=== PATIENT | female | born 1950 | race Caucasian/White ===

== ENCOUNTER 2017-03-13 10:01 | Emergency (ER) | payer MEDICARE, BC ==
--- NOTE | ~2017-03-13 | CT4 ---
[facility] A Service of [facility] & [facility] RADIOLOGY TEXT RESULTS PATIENT: DIANA CURRIE LOCATION: SED : 49 UNIT #: [id number] AGE: [address]: Foreign Cordero MD SEX: F ORDER DR: [id number] [address] [address] [id number] MR#: [id number] Acc #: [id number] NAME: DIANA CURRIE : 1950 SEX: F STUDY DATE/TIME: 03/13/2017 UNIT: SED ROOM: STUDY DESCRIPTION: CT Abd and Pelv Wo Cont Attending Physician: Foreign Cordero M.D. Ordering Physician: Foreign Cordero M.D. Primary Care Physician: Ml Victor M.D. MEDICAL IMAGING REPORT This report is preliminary unless electronic signature is present. EXAM CT abdomen and pelvis without contrast 03/13/2017 1256 hours HISTORY 66-year-old woman with complaint of lower abdominal pain and back pain with dysuria for [address] pelvis 01/22/2006 TECHNIQUE Helical noncontrasted images were obtained from the lung bases through the pubic symphysis. Oral contrast only was administered. Sagittal and coronal reconstructions were performed. This CT exam was performed with one or more of the following radiation dose reduction techniques: automatic exposure control, adjustment of mA and/or kV according to patient size, and iterative reconstruction. FINDINGS Images through the lung bases demonstrate calcified granulomata at the right base. There is no acute pulmonary density or pleural effusion. The distal esophagus is normal. Noncontrasted images through the abdomen demonstrate a normal appearance to the liver, spleen, pancreas and bile ducts. There are clips consistent with prior cholecystectomy. There is mild dilatation of the common bile duct felt likely within normal range for a postcholecystectomy patient. The right kidney is surgically absent. 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 There is a low-density lesion in the upper pole left kidney, likely a cyst. The abdominal aorta is normal in caliber. There is no adenopathy or ascites. [facility] A Service of [facility] & [facility] RADIOLOGY TEXT RESULTS PATIENT: DIANA CURRIE LOCATION: SED : 49 UNIT #: [id number] AGE: [address]: Foreign Cordero MD SEX: F ORDER DR: There is a midline ventral hernia just inferior to the xiphoid containing only fat. Transverse defect is 2.9 cm. The stomach and small bowel are well opacified and normal in appearance. The colon is opacified, and the cecum, ascending colon, transverse colon and descending colon to the level of the mid sigmoid colon, where there is focal wall thickening of the sigmoid colon and stranding of the adjacent fat. Colonic diverticula are present. The findings most likely represent acute diverticulitis. However, a colon carcinoma could appear similarly. Suggest treatment for diverticulitis with follow up colonoscopy post-treatment to exclude an underlying lesion. The left ovary lies just inferior to this area of inflammation and is smaller than on CT 2006. The uterus is surgically absent. The bladder appears normal. IMPRESSION 1. Right nephrectomy change with no stone or obstruction on the left. 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 There are a few small cysts in the left kidney. 2. The patient has an abnormal segment of the mid sigmoid colon where there is wall thickening and multiple diverticula. There is stranding of the adjacent fat. The appearance favors acute diverticulitis without abscess or perforation. A colon carcinoma could appear similarly. Suggest treatment for acute diverticulitis with follow up colonoscopy post-treatment to exclude an underlying malignancy. 3. No acute findings at the lung bases. STAT * RESULT Dictated by... Jennifer Alvarez M.D. THIS IS AN ELECTRONICALLY VERIFIED REPORT Jennifer Alvarez M.D. at 03/13/2017 4:01 PM Jeramy TD: 03/13/2017 13:59 JOB #: [id number] MEDICAL IMAGING REPORT Page 1 of 1
[2017-03-13] MEDS ORDERED: SYNTHROID125 PO (10:27)
[2017-03-13] MEDS ORDERED: ZOCOR20 MG PO (10:27)
[2017-03-13] MEDS ORDERED: PRINIVIL40 MG PO (10:27)
[2017-03-13] MEDS ORDERED: FISH OIL300 MG PO (10:28)
[2017-03-13] MEDS ORDERED: HYDROCHLOROTHIA25 MG PO (10:28)
[2017-03-13] MEDS ORDERED: PEPCID AC20 M2 PO (10:28)
[2017-03-13] MEDS ORDERED: ATIVAN0.5 MG PO (10:37)
[2017-03-13 10:39] LABS: URINE SOURCE CLEAN CATCH
[2017-03-13 10:45] LABS: URINE APPEARANCE CLEAR; URINE BILIRUBIN NEG (NEG); URINE BLOOD TRACE-INTACT (NEG); URINE COLOR YELLOW; URINE GLUCOSE NEG (NORM); URINE KETONE NEG (NEG); URINE LEUKOCYTE ESTERASE NEG (NEG); URINE NITRATE NEG (NEG); URINE PROTEIN NEG (NEG); URINE SPECIFIC GRAVITY <=1.005 (1.003-1.035); URINE UROBILINOGEN 0.2 MG/DL (NORM)
[2017-03-13 10:48] LABS: MICRO INDICATED? YES
[2017-03-13 10:51] LABS: CULTURE INDICATED? NO; URINE BACTERIA NEG (NEG); URINE RBC 0-2 /[HPF] (0-2); URINE SQUAMOUS EPITHELIAL CELL OCCAS /[HPF]; URINE WBC 0-2 /[HPF] (0-5)
[2017-03-13 11:19] LABS: BASOPHIL# 0.1 X10e3 (0-0.3); BASOPHIL% 0.8 % (0-2.5); EOSINOPHIL# 0.1 X10e3 (0-0.7); EOSINOPHIL% 1.1 % (0.0-7.0); HEMATOCRIT 41.6 % (35.0-45.0); HEMOGLOBIN 14.3 gm/dL (12.0-16.0); LYMPHOCYTE# 1.2 X10e3 (1.0-3.5); LYMPHOCYTE% 15.5 % (17.0-45.0); MEAN CELL VOLUME 82.4 FL (83-96); MEAN CORPUSCULAR HEMOGLOBIN 28.4 PG (28-34); MEAN CORPUSCULAR HGB CONC 34.5 g/dL (30-36); MEAN PLATELET VOLUME 8.2 FL (6.5-11.5); MONOCYTE# 0.6 X10e3 (0-1.0); MONOCYTE% 8.4 % (3.0-12.0); NEUTROPHIL# 5.6 X10e3 (1.5-7.1); NEUTROPHIL% 74.2 % (40-75); PLATELET COUNT 117 X10e3 (140-420); RED BLOOD COUNT 5.05 X10e (3.90-5.30); RED CELL DISTRIBUTION WIDTH 14.2 % (11.0-15.5); WHITE BLOOD COUNT 7.6 X10e3 (4.0-10.5)
[2017-03-13 11:23] LABS: DIFF IND NO
[2017-03-13 11:39] LABS: ALBUMIN SERUM 4.2 g/dL (3.5-5.0); BILIRUBIN, DIRECT 0.1 mg/dL (0.0-0.2); BILIRUBIN,TOTAL 1.1 mg/dL (0.2-2.0); BUN/CREATININE RATIO 21.66; CALCIUM SERUM 9.3 mg/dL (8.4-10.2); CREATININE SERUM 1.2 mg/dL (0.6-1.4); GLOM FILT RATE Estimated 46.7 mL/min (>60); POTASSIUM 4.1 mmol/L (3.5-5.1); PROTEIN TOTAL SERUM 7.9 g/dL (6.0-8.3)
== END 2017-03-13 14:22 | disposition home or self-care (01) ==
LOC: SED 10:01
PROVIDERS: Emergency Medicine
DX: K57.32 Diverticulitis of large intestine without perforation or abscess without bleeding (principal); K21.9 Gastro-esophageal reflux disease without esophagitis; J44.9 Chronic obstructive pulmonary disease, unspecified; I10 Essential (primary) hypertension; E78.5 Hyperlipidemia, unspecified; E03.9 Hypothyroidism, unspecified; Z88.0 Allergy status to penicillin; Z88.1 Allergy status to other antibiotic agents; Z88.2 Allergy status to sulfonamides; Z79.899 Other long term (current) drug therapy
CPT/HCPCS: 36415; 74176; 80048; 80076; 81003; 82150; 83605; 83690; 85025; 99284

== ENCOUNTER → 2017-03-30 | Outpatient (CLI) | payer MEDICARE, BC ==
[~2017-03-30] MED LIST: ATIVAN0.5 MG PO; FISH OIL300 MG PO; HYDROCHLOROTHIA25 MG PO; PEPCID AC20 M2 PO; PRINIVIL40 MG PO; SYNTHROID125 PO; ZOCOR20 MG PO
--- NOTE | ~2017-03-30 | CT4 ---
[facility] A Service of [facility] & [facility] RADIOLOGY TEXT RESULTS PATIENT: DIANA CURRIE LOCATION: [facility] : 49 UNIT #: [id number] AGE: [address]: Pippa Victor MD SEX: F ORDER DR: [id number] [address] [address] [id number] O MR#: [id number] Acc #: [id number] NAME: DIANA CURRIE : 1950 SEX: F STUDY DATE/TIME: 03/30/2017 15:30 UNIT: [facility] ROOM: STUDY DESCRIPTION: CT Abd and Pelv Wo Cont Attending Physician: Ml Victor M.D. Referring Physician: Ml Victor M.D. Ordering Physician: Ml Victor M.D. Primary Care Physician: Ml Victor M.D. MEDICAL IMAGING REPORT This report is preliminary unless electronic signature is present. EXAM CT abdomen and pelvis 03/30. INDICATIONS Right lower abdominal pain and right flank pain for 2 months. Follow up prior abnormal CT showing sigmoid thickening. TECHNIQUE Axial images were obtained through the abdomen and pelvis following oral contrast administration. Multiplanar reformats were obtained. This CT exam was performed with one or more of the following radiation dose reduction techniques: Automatic exposure control, adjustment of mA and/or kV according to patient size, and iterative reconstruction. COMPARISON 03/13/2017. FINDINGS Abdomen: There is some mild scarring or chronic atelectasis in the lingula. Gallbladder surgically absent. Right kidney is surgically absent. The right nephrectomy bed is unremarkable. The spleen remains enlarged with a craniocaudal [id number] length of 15.8 cm. The left kidney is nonobstructed. No adenopathy or free fluid is seen. The GI tract is normal. Pelvis: Urinary bladder is normal. Uterus is surgically absent. There is sigmoid diverticulosis. Previously seen wall thickening and adjacent inflammation in the sigmoid colon has resolved. Please note that the patient's cecum is just to the left of midline in the pelvis. The appendix is normal. The remainder of the GI tract in the pelvis is normal as well. IMPRESSION [facility] A Service of [facility] & [facility] RADIOLOGY TEXT RESULTS PATIENT: DIANA CURRIE LOCATION: [facility] : [birth year] UNIT #: [id number] AGE: [address]: Pippa Victor MD SEX: F ORDER DR: 1. Interval resolution of sigmoid diverticulitis. No definite acute findings in the GI tract today. The appendix is normal. 2. Right nephrectomy. The left kidney remains nonobstructed. There is a presumed stable cyst in the upper pole left kidney. 3. Stable splenomegaly. 4. Cholecystectomy and hysterectomy. Dictated by... Derrell Cordon Jr., M.D. THIS IS AN ELECTRONICALLY VERIFIED REPORT Derrell Cordon Jr., M.D. at 04/01/2017 5:03 PM RENEE/albin TD: 04/01/2017 13:01 JOB #: [id number] MEDICAL IMAGING REPORT Page 1 of 1
== END | disposition home or self-care (01) ==
LOC: SCT 15:00
DX: K57.32 Diverticulitis of large intestine without perforation or abscess without bleeding (principal); R16.1 Splenomegaly, not elsewhere classified; Z90.5 Acquired absence of kidney; Z90.49 Acquired absence of other specified parts of digestive tract; Z90.710 Acquired absence of both cervix and uterus
CPT/HCPCS: 74176

== ENCOUNTER → 2017-04-23 | Outpatient (CLI) | payer MEDICARE, BC ==
--- NOTE | ~2017-04-23 | MR176 ---
[facility] A Service of [facility] & [facility] RADIOLOGY TEXT RESULTS PATIENT: DIANA CURRIE LOCATION: [facility] : 49 UNIT #: [id number] AGE: [address]: Pippa Victor MD SEX: F ORDER DR: [id number] [address] [address] [id number] O MR#: [id number] Acc #: [id number] NAME: DIANA CURRIE : 1950 SEX: F STUDY DATE/TIME: 04/23/2017 11:01 UNIT: [facility] ROOM: STUDY DESCRIPTION: MR Thoracic Wo Contrast Attending Physician: Ml Victor M.D. Referring Physician: Ml Victor M.D. Ordering Physician: Ml Victor M.D. Primary Care Physician: Ml Victor M.D. MRI CENTER REPORT This report is preliminary unless electronic signature is present. EXAM MRI of the thoracic spine without contrast dated 04/23/[address] abdomen and pelvis without contrast dated 03/30/2017. HISTORY Mid back pain for 11 years especially in the right side. Due to renal cell carcinoma, right kidney was removed in 2005. FINDINGS Multisequence, multiplanar imaging of the thoracic spine was obtained without contrast. From the level of T5 to the level of T7, there is a vertically oriented increased T2 signal lesion within the center of the cord. This is relatively more prominent at T6-7 level measuring 1.7 x 2.6 cm. There is no obvious soft tissue components noted. Minimal increased T2 signal within the cord is noted above it extending above and below it. No significant enlargement of the cord size is seen. Degenerative disc disease is at multiple levels. Fatty signal 1.6 x 1.3 x 1.8 cm lesion is noted with T5 vertebral body in the mid to right lateral aspect. No associated pathological fracture or extraosseous soft tissue component is seen. Smaller fatty signal another lesion is suspected in the right lateral aspect of T8. The other fatty signal changes noted in the thoracic spine appear to be more ill-defined. They are either related to fatty endplate change or fatty marrow conversion. Increased T2 signal lesions are noted in various neural foramina. They are seen in right C7-T1, bilateral T1-2 and left T2-3, right T6-7 neural foramina. Relatively large 1 is in the left T2-3 neural foramen measuring about 1.1 cm. These are better seen in the sagittal images when compared to the axials given the skipped slices obtained in the axial images. Disc osteophyte complex is noted throughout the thoracic spine and portions of the visualized lower cervical and upper lumbar levels. It is slightly [facility] A Service of [facility] RADIOLOGY TEXT RESULTS PATIENT: DIANA CURRIE LOCATION: [facility] : 48 UNIT #: [id number] AGE: [address]: Pippa Victor MD SEX: F ORDER DR: worse at T7-8 with right central to subarticular focal small protrusion. Mild facet changes are at multiple levels, relatively worse at left T10-11 facet joint. No significant canal stenosis is seen. Dextroscoliosis of the mid thoracic spine is noted. No dedicated coronal scoliotic sequence was obtained. IMPRESSION 1. Increased T2 signal is noted within the cord extending mainly from the level of T6 to the level of T7. It measures 1.7 x 2.6 mm in greatest axial dimension at the level of T6-7. Minimal increased T2 signal is noted within the cord above and below this level. It could represent a small syrinx at the level of T6-7. There are no old studies to ensure stability. If it has not been previously evaluated, postcontrast sequences can be considered to confirm that it is indeed a simple syrinx. Tumor syrinx is very less likely given the lack of significant caliber change. 2. Degenerative disc disease is at multiple levels, relatively worse at T-8 with right central to subarticular protrusion. 3. Degenerative facet and endplate changes are noted. Facet changes are slightly worse in left T10-11 facet joint. 4. Increased T2 signal lesions are noted in the neural foramen at multiple levels. Relatively larger 1 is in the left T2-3 neural foramen measuring 1.1 cm. These can also be evaluated in the postcontrast sequences. Statistically, they are probably perineural cysts. Nerve sheath tumors are next in the differential consideration. Dictated by... Kim Pro M.D. THIS IS AN ELECTRONICALLY VERIFIED REPORT Kim Pro M.D. at 04/24/2017 4:29 PM CPR/lalit TD: 04/24/2017 09:47 JOB #: [id number] MRI CENTER REPORT Page 1 of 1
== END | disposition home or self-care (01) ==
LOC: SMRI 10:35
DX: M54.6 Pain in thoracic spine (principal); M51.34 Other intervertebral disc degeneration, thoracic region; M51.24 Other intervertebral disc displacement, thoracic region; R93.8 Abnormal findings on diagnostic imaging of other specified body structures
CPT/HCPCS: 72146